=== PATIENT | male | born 1985 | race American Indian/Alaskan Native ===

== ENCOUNTER 2016-09-12 17:03 | Emergency (ER) | payer SELFPAY ==
--- NOTE | 2016-09-12 17:37 | Emergency Department Report ---
Chief Complaint: High BP Stated Complaint: BP HIGH Time Seen by Provider: 09/12/16 17:31 - HPI History of Present Illness: Patient is a 31 y/o male with history of HTN and type 2 diabetes. who presents due to sore throat, nasal congestion and uncontrolled BP. Patient states that he stopped taking his losartan about 1 week ago. Patient states he knew he had high BP when he started having a headache. No chest pain or SOB. No numbness, tingling, no blurred vision. Patient states that he felt dizzy earlier today. - ROS Review of Systems: see HPI - Exam Vital Signs: Vital Signs 09/12/16 17:19 Temperature 100.9 F H Pulse Rate 131 H Respiratory 20 Rate Blood Pressure 159/117 O2 Sat by Pulse 98 Oximetry Physical Exam: LEFT PERITONSILLAR SWELLING, UVULA DEVIATION MSE screening note: Focused history and physical exam performed. Due to findings the following was ordered: ED Disposition for MSE Condition: Stable
[2016-09-12] MEDS ORDERED: NACL 0.9% 1000 ML 1,000 ML IV ONE (17:43)
[2016-09-12] MEDS ORDERED: CLEOCIN 600 MG/50 mL 50 ML IV ONE ×2 (17:43→21:38)
[2016-09-12] MEDS ORDERED: DECADRON IV ONE (17:44)
[2016-09-12] MEDS ORDERED: NACL ONE ×2 (17:44→20:57)
[2016-09-12 18:07] LABS: Basophils % (Auto) 0.8 % (0.0-1.8); Eosinophils % (Auto) 1.2 % (0.0-4.3); Hematocrit 46.7 % (35.5-45.6); Hemoglobin 15.5 gm/dl (11.8-15.2); Mean Corpuscular HGB Conc 33 % (32-34); Mean Corpuscular Hemoglobin 28 pg (28-32); Mean Corpuscular Volume 84 fl (84-94); Platelet Count 291 K/mm3 (140-440); Red Blood Count 5.56 M/mm3 (3.65-5.03); Red Cell Distribution Width 14.2 % (13.2-15.2); White Blood Count 9.3 K/mm3 (4.5-11.0)
[2016-09-12 18:32] LABS: Alanine Aminotransferase 18 units/L (7-56); Albumin 4.1 g/dL (3.9-5); Alkaline Phosphatase 46 units/L (35-129); Anion Gap 21 mmol/L; Bilirubin,Total 0.4 mg/dL (0.1-1.2); Blood Urea Nitrogen 12 mg/dL (9-20); Calcium 9.1 mg/dL (8.4-10.2); Carbon Dioxide 24 mmol/L (22-30); Chloride 95.5 mmol/L (98-107); Glucose 310 mg/dL (75-100); Potassium 4.4 mmol/L (3.6-5.0); Sodium 136 mmol/L (137-145); Total Protein 8.3 g/dL (6.3-8.2)
--- NOTE | 2016-09-12 21:16 | Emergency Department Report ---
HPI - General Chief Complaint: High BP Time Seen by Provider: 09/12/16 21:12 - HPI HPI: This is a 31-year-old Afro-[place] male who presents to the emergency department with the complaint of sore throat, left-sided jaw and tooth pain and concern for abscess. He also complains of intermittent headache with elevated blood pressure. The patient has taken some Motrin for symptoms that relief. The patient began having a sore throat on , 5 days ago and then on Monday, 3 days ago he began having left ear pain. There is been some swelling and discomfort to the left side of the lower jaw. He has a history of [id number] diabetes, hypertension. He is on losartan but has not taken any of his medications today. No recent travel or sick contacts at home. He does not have a primary care doctor. He denies tobacco abuse or illicit drug use. ED Past Medical Hx - Past Medical History Previous Medical History?: Yes Hx Hypertension: Yes Hx Diabetes: Yes Additional medical history: high cholesterol - Surgical History Past Surgical History?: No - Social History Smoking Status: Never Smoker Substance Use Type: Alcohol, Prescribed - Medications Home Medications: Home Medications Medication Instructions Recorded Confirmed Last Taken Type Clindamycin [Clindamycin CAP] 300 mg PO Q8H #30 cap 09/12/16 Unknown Rx Ibuprofen [Motrin] 200 mg PO Q6H PRN 09/12/16 09/12/16 09/12/16 History Losartan [Cozaar] 25 mg PO QDAY 09/12/16 09/12/16 Unknown History metFORMIN [Glucophage] 500 mg PO BID 09/12/16 09/12/16 Unknown History ED Review of Systems ROS: Stated complaint: BP HIGH Other details as noted in HPI Comment: All other systems reviewed and negative Constitutional: chills. denies: fever Eyes: denies: eye pain, eye discharge, vision change ENT: ear pain, throat pain, congestion Respiratory: denies: cough, shortness of breath, wheezing Cardiovascular: denies: chest pain, palpitations Gastrointestinal: denies: abdominal pain, nausea, diarrhea Genitourinary: denies: urgency, dysuria Musculoskeletal: denies: back pain, joint swelling, arthralgia Skin: denies: rash, lesions Neurological: denies: headache, weakness, paresthesias Physical Exam - Physical Exam Vital Signs: Vital Signs 09/12/16 17:19 Temperature 100.9 F H Pulse Rate 131 H Respiratory 20 Rate Blood Pressure 159/117 O2 Sat by Pulse 98 Oximetry Physical Exam: GENERAL: The patient is well-developed well-nourished. HEENT: Normocephalic. Atraumatic. Extraocular motions are intact. Patient has moist mucous membranes. Pupils equal reactive to light bilaterally. There is some erythema to the posterior pharynx. Left-sided tonsillar hypertrophy but no exudates. No drooling or trismus. Mallampati of 3 NECK: Supple. Bilateral submandibular lymphadenopathy. CHEST/LUNGS: Clear to auscultation. There is no respiratory distress noted. HEART/CARDIOVASCULAR: Regular. There is no tachycardia. There is no gallop rub or murmur. ABDOMEN: Abdomen is soft, nontender. Patient has normal bowel sounds. There is no abdominal distention. Obese habitus. SKIN: Warm but dry. NEURO: The patient is awake, alert, and oriented. The patient is cooperative. The patient has no focal neurologic deficits. The patient has normal speech. MUSCULOSKELETAL: There is no tenderness or deformity. There is no limitation range of motion. There is no evidence of acute injury. ED Course Vital Signs 09/12/16 17:19 Temperature 100.9 F H Pulse Rate 131 H Respiratory 20 Rate Blood Pressure 159/117 O2 Sat by Pulse 98 Oximetry ED Medical Decision Making - Lab Data Result diagrams: 09/12/16 17:57 09/12/16 17:57 - Radiology Data Radiology results: report reviewed CT of the neck with IV contrast shows a left peritonsillar area that is 2.4 x 2 cm with a hypodense masslike structure with a slightly thickened wall. This could be a left peritonsillar abscess. However a tumor mass is not excluded. There are several slightly enlarged lymph nodes in the neck bilaterally. Other lymph nodes are seen in greater number than is typically noted. This adenopathy could be reactive or neoplastic. - Medical Decision Making 31-year-old male presents the emergency department with five-day history of sore throat and a few days of left ear pain. He presents with intermittent fevers. Patient was given IV fluid resuscitation, IV clindamycin, Solu-Medrol and Tylenol. Patient's labs are mostly unremarkable and there is no leukocytosis. Patient's vital show a fever with a temperature of 100.9 but it came down to 99.[address] of the neck with IV contrast was done that shows a probable left peritonsillar abscess but the radiology reading also says it cannot exclude any type of mass like structure and the patient does have a large amount of lymphadenopathy in the neck. With the treatment his blood pressure and heart rate has come better controlled. Patient appears safe for discharge home as there is no obstruction of the airway , drooling, trismus. He'll be given multiple referrals for ear nose and throat and understands he needs to follow-up for evaluation of his probable peritonsillar abscess but also to rule out a neoplastic process. He will return to the ER with any worsening of symptoms or any acute distress. - Differential Diagnosis peritonsillar abscess, malignancy, uvulitis, strep pharyngitis Critical Care Time: No Critical care attestation.: If time is entered above; I have spent that time in minutes in the direct care of this critically ill patient, excluding procedure time. ED Disposition Clinical Impression: Peritonsillar abscess Pharyngitis Qualifiers: Pharyngitis/tonsillitis etiology: unspecified etiology Qualified Code(s): J02.9 - Acute pharyngitis, unspecified Disposition: DISCHARGED TO HOME OR SELFCARE Is pt being admited?: No Does the pt Need Aspirin: No Condition: Stable Instructions: Peritonsillar Abscess (ED) Additional Instructions: Please follow-up with an Ear Nose & Throat (ENT) physician in the next few days. Take the antibiotics as prescribed. Return to the emergency department with any worsening of your symptoms or any acute distress. Continue taking your blood pressure medications as previously prescribed. Try to stay away from foods that are high in salt and caffeinated products to assist with her blood pressure. Prescriptions: Clindamycin [Clindamycin CAP] 300 mg PO Q8H #30 cap Referrals: PRIMARY CARE, [Primary Care Provider] - 3-5 Days ALEXI MCCORMICK MD [Staff Physician] - 3-5 Days ANUP PUGA MD [Staff Physician] - 3-5 Days Time of Disposition: 23:55
[2016-09-12] MEDS ORDERED: NORMODYNE IV ONE (21:25)
[2016-09-12] MEDS ORDERED: TYLENOL PO ONE (21:25)
--- NOTE | 2016-09-12 23:00 | Cat Scan Report ---
FINAL REPORT PROCEDURE: CT NECK W CON TECHNIQUE: Computerized axial tomography of the soft tissue neck was performed following the IV injection of iodinated nonionic contrast. HISTORY: Left-sided neck and throat pain. Possible peritonsillar abscess. COMPARISON: No prior studies are available for comparison. FINDINGS: Within the submucosal area of the left peritonsillar region of the oropharynx there is a hypodense masslike structure with a slightly thickened wall. This measures 2.4 x 2.0 centimeters. This could easily be a peritonsillar abscess. However a tumor mass here is not excluded. Elsewhere in both sides of the neck there are some slightly enlarged lymph nodes both superficially and deep. Other nonenlarged lymph nodes are noted that are present in greater number than is typically seen. This adenopathy could be reactive or neoplastic. There is no evidence of mass otherwise. There is no inflammation or fluid collection elsewhere. IMPRESSION: 1. In the left peritonsillar area there is a 2.4 x 2.0 centimeter hypodense masslike structure with a slightly thickened wall. This could be a left peritonsillar abscess. However a tumor mass here is not excluded. Therefore close short-term follow-up recommended to make sure this resolves 2. There are several slightly enlarged lymph nodes in the neck bilaterally. Other lymph nodes are seen in greater number than is typically noted as well. This adenopathy could be reactive or neoplastic.
[2016-09-12 23:52] VITALS: BP 154/107
== END 2016-09-13 00:21 | disposition home or self-care (01) ==
LOC: ED 17:03
DX: J36 Peritonsillar abscess (principal); J02.9 Acute pharyngitis, unspecified; I10 Essential (primary) hypertension; E11.9 Type 2 diabetes mellitus without complications; E78.00 Pure hypercholesterolemia, unspecified
CPT/HCPCS: 36415; 70491; 80053; 85025; 87116; 87430; 96365; 96375; 99284; J2930; Q9967

== ENCOUNTER 2020-11-02 15:29 | Emergency (ER) | payer BC, OTHER ==
[2020-11-02] MEDS ORDERED: SODIUM CHLORIDE 0.9% 1000 ML 1,000 ML IV ONE ×3 (16:11→19:29)
[2020-11-02 16:51] LABS: Basophils % (Auto) 0.8 % (0.0-1.8); Eosinophils % (Auto) 0.8 % (0.0-4.3); Hematocrit 47.6 % (35.5-45.6); Hemoglobin 15.9 gm/dl (11.8-15.2); Lymphocytes # (Auto) 1.8 K/mm3 (1.2-5.4); Mean Corpuscular HGB Conc 33 % (32-34); Mean Corpuscular Volume 87 fl (84-94); Monocytes # (Auto) 0.4 K/mm3 (0.0-0.8); Monocytes % (Auto) 8.2 % (0.0-7.3); Platelet Count 418 K/mm3 (140-440); Red Cell Distribution Width 13.5 % (13.2-15.2)
[2020-11-02 17:02] LABS: BUN/Creatinine Ratio 15; Blood Urea Nitrogen 12 mg/dL (9-20); Calcium 9.1 mg/dL (8.4-10.2)
[2020-11-02 17:03] LABS: Alanine Aminotransferase 46 units/L (7-56); Albumin 3.6 g/dL (3.9-5); Hemolysis Index 4
[2020-11-02] MEDS ORDERED: KETOROLAC 30 MG/1 ML INJ IV ONE (18:01)
--- NOTE | 2020-11-02 18:05 | Emergency Department Report ---
<ADONAYVIJAY - Last Filed: 11/03/20 05:26> ED General Adult HPI - General Chief complaint: Hyperglycemia Stated complaint: SOB/DIZZY/NO APPETITE Time Seen by Provider: 11/02/20 17:57 - Related Data Home Medications Medication Instructions Recorded Confirmed Last Taken Ibuprofen [Motrin] 200 mg PO Q6H PRN 09/12/16 09/12/16 09/12/16 Losartan [Cozaar] 25 mg PO QDAY 09/12/16 09/12/16 Unknown metFORMIN [Glucophage] 500 mg PO BID 09/12/16 09/12/16 Unknown Previous Rx's Medication Instructions Recorded Last Taken Type Clindamycin [Clindamycin CAP] 300 mg PO Q8H #30 cap 09/12/16 Unknown Rx Allergies Allergy/AdvReac Type Severity Reaction Status Date / Time codeine Allergy Headache Verified 11/02/20 15:49 ED Past Medical Hx - Medications Home Medications: Home Medications Medication Instructions Recorded Confirmed Last Taken Type Clindamycin [Clindamycin CAP] 300 mg PO Q8H #30 cap 09/12/16 Unknown Rx Ibuprofen [Motrin] 200 mg PO Q6H PRN 09/12/16 09/12/16 09/12/16 History Losartan [Cozaar] 25 mg PO QDAY 09/12/16 09/12/16 Unknown History metFORMIN [Glucophage] 500 mg PO BID 09/12/16 09/12/16 Unknown History ED Course - Reevaluation(s) Reevaluation #3: 11/02/20 21:34 Patient still has hyperglycemia, glucose of 319. Additional insulin ordered. Also we will give Tylenol for his report of lower back pain. ED Medical Decision Making - Lab Data Result diagrams: 11/02/20 16:26 11/02/20 16:26 ED Disposition Clinical Impression: Hyperglycemia, Body aches, Noncompliance with medication regimen Disposition: - TO HOME OR SELFCARE Is pt being admited?: No Does the pt Need Aspirin: No Condition: Stable Instructions: Muscle Pain, Adult, Hyperglycemia Additional Instructions: Follow-up with PMD in 1-2 days for re-evaluation. Return to the ER for worsening symptoms. Referrals: PRIMARY CARE, [Primary Care Provider] - 3-5 Days <ASIA DOUGLAS - Last Filed: 11/03/20 10:44> ED General Adult HPI - General Source: patient Mode of arrival: Ambulatory Limitations: No Limitations - History of Present Illness Initial comments: Patient is a 35-year-old diabetic male presents to emergency department for evaluation of gradually onset of low back pain for the past 2 weeks which progressed to body aches over the past few days. Patient was evaluated at urgent care earlier today where he was found to be hyperglycemic and possibly have right-sided pneumonia. Patient also had negative Covid test at that time. Patient denies fever, denies abdominal pain, denies nausea vomiting diarrhea, denies medication noncompliance. Patient denies chest pain or shortness of breath. Patient reports noncompliance with Metformin x1 week ED Review of Systems ROS: Stated complaint: SOB/DIZZY/NO APPETITE Other details as noted in HPI Comment: All other systems reviewed and negative ED Past Medical Hx - Past Medical History Hx Hypertension: Yes Hx Diabetes: Yes Additional medical history: high cholesterol - Social History Smoking Status: Never Smoker Substance Use Type: None ED Physical Exam - General Limitations: No Limitations General appearance: alert, in no apparent distress - Head Head exam: Present: atraumatic, normocephalic - Eye Eye exam: Present: normal appearance - ENT ENT exam: Present: mucous membranes moist - Neck Neck exam: Present: normal inspection - Respiratory Respiratory exam: Present: normal lung sounds bilaterally. Absent: respiratory distress - Cardiovascular Cardiovascular Exam: Present: regular rate, normal rhythm - GI/Abdominal GI/Abdominal exam: Present: soft, normal bowel sounds - Rectal Rectal exam: Present: deferred - Extremities Exam Extremities exam: Present: normal inspection - Back Exam Back exam: Present: normal inspection, other (Mild paralumbar spasm and tenderness) - Neurological Exam Neurological exam: Present: alert, oriented X3 - Psychiatric Psychiatric exam: Present: normal affect, normal mood - Skin Skin exam: Present: warm, dry, intact, normal color. Absent: rash ED Course Vital Signs 11/02/20 11/02/20 11/02/20 15:49 18:00 18:07 Temperature 98.9 F 98.1 F Pulse Rate 129 H 109 H Respiratory 22 22 20 Rate Blood Pressure 163/115 Blood Pressure 148/91 [Right] O2 Sat by Pulse 95 95 95 Oximetry 11/02/20 11/02/20 11/02/20 18:40 19:01 19:31 Temperature Pulse Rate 99 H 106 H Respiratory 18 Rate Blood Pressure 140/99 150/93 Blood Pressure [Right] O2 Sat by Pulse 95 97 Oximetry 11/02/20 11/02/20 11/02/20 19:35 20:01 20:31 Temperature 98.3 F Pulse Rate 109 H 101 H 103 H Respiratory 24 Rate Blood Pressure 150/103 153/103 Blood Pressure 152/103 [Right] O2 Sat by Pulse 97 97 96 Oximetry 11/02/20 11/02/20 11/02/20 21:01 21:31 21:38 Temperature Pulse Rate 98 H 95 H Respiratory 24 18 Rate Blood Pressure 141/98 157/105 Blood Pressure [Right] O2 Sat by Pulse 97 96 Oximetry 11/02/20 11/02/20 22:01 22:38 Temperature Pulse Rate 99 H Respiratory 18 Rate Blood Pressure 147/100 Blood Pressure [Right] O2 Sat by Pulse 97 Oximetry - Reevaluation(s) Reevaluation #1: 11/02/20 18:02 Patient initially treated with IV normal saline 1 L x 2 Toradol 15 mg IV x1. Reevaluation #2: 11/02/20 19:20 Patient reevaluated and in no acute distress. Repeat blood pressure 142/99, repeat pulse 88. Patient remains hyperglycemic following 2 L IV normal saline. Patient given additional 1 L IV normal saline and 5 units of insulin regular IV x1. Patient states back pain is resolved with IV normal saline and Toradol. Patient advised to continue Metformin as prescribed and follow-up with regular doctor in 1 to 2 days for reevaluation. 11/02/20 19:30 ED Medical Decision Making - Lab Data Result diagrams: 11/02/20 16:26 11/02/20 16:26 Labs 11/02/20 11/02/20 11/02/20 15:59 16:26 16:26 WBC 5.4 RBC 5.50 H Hgb 15.9 H Hct 47.6 H MCV 87 MCH 29 MCHC 33 RDW 13.5 Plt Count 418 Lymph % (Auto) 34.0 [place] % (Auto) 8.2 H Eos % (Auto) 0.8 Baso % (Auto) 0.8 Lymph # (Auto) 1.8 [place] # (Auto) 0.4 Eos # (Auto) 0.0 Baso # (Auto) 0.0 Seg Neutrophils % 56.2 Seg Neutrophils # 3.1 VBG pH Sodium 133 L Potassium 4.2 Chloride 93.1 L Carbon Dioxide 31 H Anion Gap 13 BUN 12 Creatinine 0.8 Estimated GFR > 60 BUN/Creatinine Ratio 15 Glucose 452 H POC Glucose 453 H Calcium 9.1 Total Bilirubin 0.50 AST 32 ALT 46 Alkaline Phosphatase 48 Total Protein 7.6 Albumin 3.6 L Albumin/Globulin Ratio 0.9 11/02/20 16:26 WBC RBC Hgb Hct MCV MCH MCHC RDW Plt Count Lymph % (Auto) [place] % (Auto) Eos % (Auto) Baso % (Auto) Lymph # (Auto) [place] # (Auto) Eos # (Auto) Baso # (Auto) Seg Neutrophils % Seg Neutrophils # VBG pH 7.383 Sodium Potassium Chloride Carbon Dioxide Anion Gap BUN Creatinine Estimated GFR BUN/Creatinine Ratio Glucose POC Glucose Calcium Total Bilirubin AST ALT Alkaline Phosphatase Total Protein Albumin Albumin/Globulin Ratio Vital Signs 11/02/20 11/02/20 11/02/20 15:49 18:00 18:07 Temperature 98.9 F 98.1 F Pulse Rate 129 H 109 H Respiratory 22 22 20 Rate Blood Pressure 163/115 Blood Pressure 148/91 [Right] O2 Sat by Pulse 95 95 95 Oximetry - Radiology Data Radiology results: report reviewed Chest x-ray negative per radiology Critical care attestation.: If time is entered above; I have spent that time in minutes in the direct care of this critically ill patient, excluding procedure time. ED Disposition Is pt being admited?: No
--- NOTE | 2020-11-02 19:14 | XRay Report ---
CHEST 1 VIEW INDICATION / CLINICAL INFORMATION: cough. COMPARISON: None available. FINDINGS: SUPPORT DEVICES: None. HEART / MEDIASTINUM: No significant abnormality. LUNGS / PLEURA: No significant pulmonary or pleural abnormality. No pneumothorax. ADDITIONAL FINDINGS: No significant additional findings. IMPRESSION: No acute pulmonary or pleural abnormality Signer Name: Ky Ricardo MD FACR Signed: 11/02/2020 7:09 PM Workstation Name: [id number]
[2020-11-02] MEDS ORDERED: INSULIN REGULAR, HUMAN 100 UNITS/1 ML IV ONE ×2 (19:29→21:33)
[2020-11-02 19:46] LABS: Bilirubin,Urine NEG (Negative); Blood,Urine NEG (Negative); Color,Urine Yellow (Yellow); Mucus,Urine 2+ /HPF; Urobilinogen,Urine < 2.0 mg/dL (<2.0)
[2020-11-02] MEDS ORDERED: ACETAMINOPHEN 325 MG TAB PO ONE (21:33)
[2020-11-02 22:51] VITALS: BP 147/100
--- NOTE | 2020-11-05 10:57 | Electrocardiograph Report ---
[facility] Test Date: 2020-11-02 Test Time: 16:03:03 Pat Name: APPLE RODRIGUEZ Department: Room: Gender: M Charity Fundraiser: : 1985 Requested By: ASIA DOUGLAS Order Number: [id number] Reading MD: Joel Eddy Measurements Intervals [place] Rate: 131 P: 68 AL: 131 QRS: 73 QRSD: 89 T: -29 QT: 311 QTc: 461 Interpretive Statements Sinus tachycardia Probable left atrial enlargement Inferior infarct, age indeterminate No previous ECG available for comparison Electronically Signed On 11-05-2020 7:56:45 PDT by Joel Eddy
== END 2020-11-02 22:50 | disposition home or self-care (01) ==
LOC: ED 15:29
DX: E11.65 Type 2 diabetes mellitus with hyperglycemia (principal); I10 Essential (primary) hypertension; Z91.14 Patient's other noncompliance with medication regimen
CPT/HCPCS: 36415; 71045; 80053; 81001; 82805; 82962; 85025; 93005; 96361; 96374; 96375; 96376; 99284; J1885; J7030; J1815